=== PATIENT | female | born 1970 | race American Indian/Alaskan Native ===

== ENCOUNTER 2016-06-11 22:29 | Emergency (ER) | payer BC ==
[2016-06-11 22:38] VITALS: BMI 32.0
--- NOTE | 2016-06-11 23:30 | ED PDOC ---
Arrival/HPI - General Chief Complaint: Shortness Of Breath Time Seen by Provider: 06/11/16 23:03 Historian: Patient - History of Present Illness Narrative History of Present Illness (Text): 06/11/16 23:29 Catrachita Siu is a 45 year old female, whose past medical history includes asthma, who presents to the Emergency department complaining of shortness of breath. Patient states while cooking at home she began experiencing shortness of breath consistent with her usual asthma symptoms. Patient notes she did not take her oral steroids today. Patient states she has also been experiencing cough with congestion. Patient denies any fever, chills, chest pain, nausea, vomiting, diarrhea, urinary symptoms, back pain, neck pain, headache, dizziness, or any other complaints. Time/Duration: Other (tonight) Symptom Onset: Gradual Symptom Course: Unchanged Activities at Onset: Light Context: Home Past Medical History - Provider Review Nursing Documentation Reviewed: Yes - Infectious Disease Hx of Infectious Diseases: None - Tetanus Immunization Tetanus Immunization: Up to Date - Past Medical History Past Medical History: No Previous - Cardiac Hx Cardiac Disorders: Yes Hx Hypertension: Yes - Pulmonary Hx Respiratory Disorders: Yes Hx Asthma: Yes - Neurological Hx Neurological Disorder: No Hx Vertigo: Yes - HEENT Hx HEENT Disorder: No - Renal Hx Renal Disorder: No - Endocrine/Metabolic Hx Endocrine Disorders: No - Hematological/Oncological Hx Blood Disorders: No - Integumentary Hx Dermatological Disorder: No - Musculoskeletal/Rheumatological Hx Musculoskeletal Disorders: No - Gastrointestinal Hx Gastrointestinal Disorders: No - Genitourinary/Gynecological Hx Genitourinary Disorders: No - Psychiatric Hx Psychophysiologic Disorder: No Hx Depression: No Hx Emotional Abuse: No Hx Physical Abuse: No Hx Substance Use: No - Surgical History Hx Section: Yes Hx Cholecystectomy: Yes Hx Gastric Bypass Surgery: Yes (08/25/2013) - Anesthesia Hx Anesthesia: Yes Hx Anesthesia Reactions: No Hx Malignant Hyperthermia: No - Suicidal Assessment Feels Threatened In Home Enviroment: No Family/Social History - Physician Review Nursing Documentation Reviewed: Yes Family/Social History: No Known Family HX Smoking Status: Never Smoked Hx Alcohol Use: No Hx Substance Use: No Hx Substance Use Treatment: No Allergies/Home Meds Allergies/Adverse Reactions: Allergies chocolate flavor Allergy (Verified 06/11/16 22:39) RASH milk Allergy (Verified 06/11/16 22:39) DIARRHEA english Allergy (Uncoded 06/11/16 22:39) RASH seafood Allergy (Uncoded 06/11/16 22:39) RASH Home Medications: Home Meds Medication Instructions Recorded Confirmed Levocetirizine Dihydrochlori 5 mg PO PRN PRN 06/15/14 12/17/15 [Xyzal] Review of Systems - Physician Review All systems were reviewed & negative as marked: Yes - Review of Systems Constitutional: Normal. absent: Fevers Eyes: Normal ENT: Normal Respiratory: SOB, Cough Cardiovascular: Normal. absent: Chest Pain Gastrointestinal: Normal. absent: Abdominal Pain, Diarrhea, Nausea, Vomiting Genitourinary Female: Normal. absent: Dysuria, Frequency, Hematuria, Urine Output Changes Musculoskeletal: Normal. absent: Back Pain, Neck Pain Skin: Normal. absent: Rash Neurological: Normal. absent: Headache, Dizziness Endocrine: Normal Hemo/Lymphatic: Normal Psychiatric: Normal Physical Exam Vital Signs Reviewed: Yes Vital Signs Temp Pulse Resp BP Pulse Ox 06/12/16 02:49 98.2 F 78 18 118/62 99 06/12/16 00:44 98.1 F 81 17 124/67 97 06/11/16 23:14 18 06/11/16 22:39 97.8 F 80 22 102/45 L 99 Temperature: Afebrile Blood Pressure: Normal Pulse: Regular Respiratory Rate: Normal Appearance: Positive for: Well-Appearing, Non-Toxic, Comfortable Pain Distress: None Mental Status: Positive for: Alert and Oriented X 3 - Systems Exam Head: Present: Atraumatic, Normocephalic Pupils: Present: PERRL Extroacular Muscles: Present: EOMI Conjunctiva: Present: Normal Mouth: Present: Moist Mucous Membranes Neck: Present: Normal Range of Motion Respiratory/Chest: Present: Wheezes (Slight expiratory wheeze). No: Respiratory Distress, Accessory Muscle Use Cardiovascular: Present: Regular Rate and Rhythm, Normal S1, S2. No: Murmurs Abdomen: Present: Normal Bowel Sounds. No: Tenderness, Distention, Peritoneal Signs Back: Present: Normal Inspection Upper Extremity: Present: Normal Inspection. No: Cyanosis, Edema Lower Extremity: Present: Normal Inspection. No: Edema Neurological: Present: GCS=15, CN II-XII Intact, Speech Normal Skin: Present: Warm, Dry, Normal Color. No: Rashes Psychiatric: Present: Alert, Oriented x 3, Normal Insight, Normal Concentration Medical Decision Making ED Course and Treatment: 06/11/16 23:29 Impression: 45 year old female complaining of shortness of breath and cough tonight. Differential Diagnosis include but are not limited to: asthma vs. bronchitis Plan: -- EKG -- Duoneb -- Prednisone -- Reassess and disposition Progress Notes: Reviewed EKG, NSR at 72 bpm. Non-specific T wave changes. 06/12/16 02:20 On re-evaluation, the patient feels better and is in no acute distress. I have discussed the results and plan with the patient, who expresses understanding. Patient in agreement with plan to discharged home. Patient is stable for discharge. Patient was instructed to follow up with physician/clinic in 1-2 days or return if symptoms worsen or new concerning symptoms arise. - EKG Interpretation Interpreted by ED Physician: Yes Type: 12 lead EKG - Medication Orders Current Medication Orders: Discontinued Medications Acetaminophen (Tylenol 325mg Tab) 650 mg PO STAT STA Stop: 06/11/16 23:41 Last Admin: 06/11/16 23:49 Dose: 650 MG Albuterol/Ipratropium (Duoneb 3 Mg/0.5 Mg (3 Ml) Ud) 3 ml IH ONCE STA Stop: 06/11/16 23:35 Last Admin: 06/11/16 23:37 Dose: 3 ML Albuterol/Ipratropium (Duoneb 3 Mg/0.5 Mg (3 Ml) Ud) Confirm Administered Dose 9 ml .ROUTE .STK-MED ONE Stop: 06/11/16 23:37 Last Admin: 06/11/16 23:52 Dose: Azithromycin (Zithromax) 500 mg PO ONCE STA PRN Reason: Protocol Stop: 06/12/16 02:23 Last Admin: 06/12/16 02:34 Dose: 500 MG Prednisone (Prednisone Tab) 60 mg PO ONCE STA Stop: 06/11/16 23:35 Last Admin: 06/11/16 23:49 Dose: 60 MG - Scribe Statement The provider has reviewed the documentation as recorded by the Slade Saha Provider Attestation: All medical record entries made by the Slade were at my direction and personally dictated by me. I have reviewed the chart and agree that the record accurately reflects my personal performance of the history, physical exam, medical decision making, and the department course for this patient. I have also personally directed, reviewed, and agree with the discharge instructions and disposition. Disposition/Present on Arrival - Present on Arrival Any Indicators Present on Arrival: No History of DVT/PE: No History of Uncontrolled Diabetes: No Urinary Catheter: No History of Decub. Ulcer: No History Surgical Site Infection Following: None - Disposition Have Diagnosis and Disposition been Completed?: Yes Diagnosis: Asthma attack, Bronchitis Disposition: HOME/ ROUTINE Disposition Time: 02:24 Patient Plan: Discharge Condition: GOOD Discharge Instructions (ExitCare): Asthma (ED), Acute Bronchitis (ED) Additional Instructions: Take meds as prescribed/follow up with your doctor this week Prescriptions: Azithromycin [Zithromax] 250 mg PO DAILY #4 tab predniSONE [Prednisone] 40 mg PO DAILY #10 tab
[2016-06-11] MEDS ORDERED: Albuterol-Ipratrop 3 mg / 0.5 (3 ml) UD IH STA (23:34)
[2016-06-11] MEDS ORDERED: Albuterol-Ipratrop 3 mg / 0.5 (3 ml) UD ONE (23:36)
[2016-06-12 02:52] VITALS: BP 118/62; PULSE 78; RESP 18; TEMP 98.2; O2SAT 99
--- NOTE | 2016-06-12 18:03 | CARD ---
APPROVED REPORT EKG Measurement Heart [id number] <Conclusion> Normal sinus rhythm Nonspecific T wave abnormality Abnormal ECG
== END 2016-06-12 02:20 | disposition home or self-care (01) ==
LOC: ED 22:29 → EDUNIT# 22:29 → ED 06-12 02:20
DX: J45.909 Unspecified asthma, uncomplicated (principal); I10 Essential (primary) hypertension